=== PATIENT | female | born 1955 | race Caucasian/White ===

== ENCOUNTER 2018-12-11 19:16 | Emergency (ER) | payer OTHER ==
[~2018-12-11] VITALS: Ht 165.1 cm; Wt 60.5 kg
[2018-12-11 19:35] VITALS: BP 134/78
[2018-12-11] MEDS ORDERED: IBUP-1984 PO (20:05)
[2018-12-11] MEDS ORDERED: PENI500T2 PO (20:05)
== END 2018-12-11 20:14 | disposition home or self-care (01) ==
LOC: ER 19:17
DX: K02.9 Dental caries, unspecified (principal); Z88.2 Allergy status to sulfonamides; Z88.5 Allergy status to narcotic agent
CPT/HCPCS: 99283